=== PATIENT | male | born 1960 | race Caucasian/White ===

== ENCOUNTER 2020-01-03 08:48 | Outpatient (CLI) | payer MEDICARE, MEDICAID, SELFPAY ==
--- NOTE | ~2020-01-03 | MR_ITS ---
EXAMINATION: MR cervical spine wo [facility] EXAM DATE: 01/03/2020 10:21 INDICATION: Right-sided neck and shoulder pain for 5 weeks. TECHNIQUE: Multi-sequential, multiplanar MR images of the cervical spine were obtained without contra st. Axial T2, axial T2 MERGE sequence. Sagittal T1, T2, T2 fat saturation images also obtained. Th ere is no prior study for comparison. FINDINGS: There are some limitations from patient motion. There is anterior and interbody fusion at C6-7. The spinal cord signal intensity and intrinsic morphology is normal. Cervicomedullary junction is normal in appearance. There are no suspicious marrow signal abnormalities. Paraspinal soft tissue is unremarkable. The vertebral bodies are aligned in the AP dimension. Level by level evaluation: C2-C3: Disc does not extend beyond the endplate margin. Uncovertebral joint arthropathy: None. Facet joint arthropathy: Moderate right, mild left. Neural foraminal stenosis: No stenosis. Central canal stenosis: No stenosis. C3-C4: There is a minimal diffuse disc bulge. Uncovertebral joint arthropathy: Mild. Facet joint arthropathy: Moderate to severe right, moderate left. Neural foraminal stenosis: Moderate right, mild to moderate left. Central canal stenosis: Mild. C4-C5: There is a mild diffuse disc bulge. Uncovertebral joint arthropathy: Mild to moderate right, mild left. Facet joint arthropathy: Severe right, moderate left. Neural foraminal stenosis: Moderate to severe right, mild left. Central canal stenosis: Mild. C5-C6: There is a mild diffuse disc bulge. Uncovertebral joint arthropathy: Mild to moderate bilateral. Facet joint arthropathy: Moderate bilateral. Neural foraminal stenosis: Mild to moderate bilateral. Central canal stenosis: Mild. C6-C7: This level is fused. Uncovertebral joint arthropathy: Fused. Facet joint arthropathy: Partially fused. Neural foraminal stenosis: No stenosis. Central canal stenosis: No stenosis. C7-T1: Disc does not extend beyond the endplate margin. Uncovertebral joint arthropathy: Moderate left, mild right. Facet joint arthropathy: Mild to moderate bilateral. Neural foraminal stenosis: Moderate left, mild to moderate right. Central canal stenosis: No stenosis. IMPRESSION: C4-5 severe right neural foraminal stenosis, less narrowings at other levels. Reviewed, dictated and finalized at location B. IMPRESSION: C4-5 severe right neural foraminal stenosis, less narrowings at oth er levels.
--- NOTE | ~2020-01-03 | MR_ITS ---
EXAMINATION: MR lumbar spine wo [facility] EXAM DATE: 01/03/2020 10:21 INDICATION: Lower thoracic fusion, compression fractures. Lumbar radiculopathy. Right hip, leg pain f or 5 weeks. TECHNIQUE: Multi-sequential, multiplanar MR images of the lumbar spine were obtained without contrast . Sagittal T1, T2, T2 fat saturation images. Axial T2 weighted images. There is no prior study for comparison. FINDINGS: Paraspinal soft tissue is unremarkable. The vertebral bodies are aligned in the AP dimensio n. Mild to moderate chronic compression fractures of T12 and L1 with thoracolumbar posterior fusion h ardware extending off the study but at least L1, T12 and T11. Mild diffuse lumbar disc disease. There is 3 mm retrolisthesis L5 on S1. Lumbar spine vertebral bodies otherwise aligned. Some metallic alfonso fact on the conus medullaris, but no evidence of signal abnormality. Level by level evaluation: T11-12: Disc does not extend beyond the endplate margin. Facet arthropathy: Poorly visualized from posterior fusion. Neural foraminal stenosis: No stenosis. Central canal stenosis: No stenosis. T12-L1: Disc does not extend beyond the endplate margin. Facet arthropathy: Poorly visualized, posterior fusion. Neural foraminal stenosis: No stenosis. Central canal stenosis: No stenosis. L1-L2: Disc does not extend beyond the endplate margin. Facet arthropathy: Mild. Neural foraminal stenosis: No stenosis. Central canal stenosis: No stenosis. L2-L3: There is a mild diffuse disc bulge. Facet arthropathy: Mild to moderate. Neural foraminal stenosis: Minimal left. Central canal stenosis: Mild. L3-L4: There is a mild diffuse disc bulge. Facet arthropathy: Mild to moderate. Neural foraminal stenosis: Mild left, minimal right. Central canal stenosis: Mild. L4-L5: There is a mild to moderate diffuse disc bulge. Facet arthropathy: Mild to moderate. Neural foraminal stenosis: Mild to moderate right, mild left. Central canal stenosis: Mild to moderate. L5-S1: There is a mild to moderate diffuse disc bulge. Facet arthropathy: Mild to moderate. Neural foraminal stenosis: Mild bilateral. Central canal stenosis: Mild. IMPRESSION: 1. Mild to moderate lumbar spondylosis. Reviewed, dictated and finalized at location A.
== END 2020-01-03 08:49 | disposition home or self-care (01) ==
PROVIDERS: PCP Emergency Medicine; Visit Provider Anesthesiology
DX: M54.16 Radiculopathy, lumbar region (principal); M54.12 Radiculopathy, cervical region
CPT/HCPCS: 72141; 72148

== ENCOUNTER 2020-01-19 12:27 | Emergency (ER) | payer MEDICARE, MEDICAID, SELFPAY ==
--- NOTE | ~2020-01-19 | XR_ITS ---
XR chest 2V 01/19/2020 13:43 Indication: Chest discomfort. Dyspnea. Procedure: 2 view chest Comparison: No prior studies for comparison. Findings: Heart size normal. There is spinal fusion of the lower thoracic spine. No focal air space d isease, pulmonary edema, pleural effusion or suspected pneumothorax. No acute osseous abnormality. Impression: 1: No acute cardiopulmonary disease. Reviewed, dictated and finalized at location B. Impression: 1: No acute cardiopulmonary disease.
--- NOTE | 2020-01-19 12:37 | ED.SOB ---
HPI - SOB/Dyspnea General Chief Complaint: Shortness of Breath/Dyspnea Stated Complaint: trouble breathing Time Seen by Provider: 01/19/20 12:37 Source: patient Mode of arrival: ambulatory Limitations: no limitations History of Present Illness HPI Narrative: Patient has been ill for approximately 2 weeks. Says he just seems to be getting worse. He was concerned about pneumonia. He was also tested for ann virus at a walk-in clinic 5 days ago. He was not seen by anyone only had the test done. Also states he has been out of his albuterol inhaler. He is not using his CPAP machine at night. He denies any history of congestive heart failure. Is not having any chest pain. He has been coughing up some yellow-green phlegm. MD elicited complaint: shortness of breath Pertinent past history: COPD Onset (ago): week(s) (2) Timing: intermittent Severity: moderate Exacerbating factors: lying flat and exertion Relieving factors: nothing Known history of: COPD Associated symptoms: cough, wheezing and sputum production Treatment prior to arrival: none Related Data Home oxygen amount: none Home Medications Medication Instructions Recorded Confirmed amlodipine 5 mg PO DAILY 01/19/20 01/19/20 aspirin 81 mg PO DAILY 01/19/20 01/19/20 atorvastatin 40 mg PO DAILY 01/19/20 01/19/20 baclofen 20 mg PO TID 01/19/20 01/19/20 cetirizine 10 mg PO DAILY 01/19/20 01/19/20 clonidine HCl 0.1 mg PO BID 01/19/20 01/19/20 fluoxetine 20 mg PO DAILY 01/19/20 01/19/20 gabapentin 300 mg PO TID 01/19/20 01/19/20 glipizide 5 mg PO DAILY 01/19/20 01/19/20 metoprolol tartrate 25 mg PO DAILY 01/19/20 01/19/20 omeprazole 10 mg PO DAILY 01/19/20 01/19/20 tamsulosin 0.8 mg PO DAILY 01/19/20 01/19/20 Allergies Allergy/AdvReac Type Severity Reaction Status Date / Time lisinopril Allergy Unknown Verified 01/19/20 12:58 Sulfa (Sulfonamide Allergy Unknown Verified 01/19/20 12:58 Antibiotics) Review of Systems Constitutional: Constitutional: Denies chills and Denies fever(s) Cardiovascular: Cardiovascular: Reports no additional cardiovascular complaints, Denies chest pain and Denies rapid heart rate Respiratory: Respiratory: Reports as per HPI and Reports change in phlegm color Gastrointestinal: Gastrointestinal: Reports no additional gastrointestinal complaints Musculoskeletal: Musculoskeletal: Reports arthralgias ( right shoulder) Integumentary/Breasts: Skin/Breast: Reports system reviewed and no additional complaints, except as docu Neurologic: Reports system reviewed and no additional complaints, except as documented Psychiatric: Psychiatric: Reports no additional psychiatric complaints Endocrine: Endocrine: Reports no additional endocrine complaints Hematologic/Lymphatic: Hematologic/Lymphatic: Reports no additional hematologic/lymphatic complaints [facility] Past Medical History Medical History (Updated 01/19/20 @ 14:14 by Rylan Lacy MD) COPD (chronic obstructive pulmonary disease) Coronary artery disease Type 2 diabetes mellitus Surgical History Surgical History (Updated 01/19/20 @ 12:51 by Rylan Lacy MD) Fusion of lumbar spine H/O cervical spine surgery Social History Social History (Updated 01/19/20 @ 12:51 by Rylan Lacy MD) Smoking packs per day: 1 Smoking cigarettes per day: 20.0 Smoking status: Current every day smoker Tobacco type: cigarettes Alcohol intake: current Alcohol use details: occasional Substance use: never Exam Const: General: healthy appearing and no acute distress Nutritional Appearance: well nourished and obese centrally obese Orientation/consciousness: patient oriented x3 HENMT: Head: normal to inspection Ears: external ears normal Face and sinus: normal facial exam Mouth: Yes lip normal and Yes moist mucous membranes Eyes: Conjunctivae: conjunctivae normal Pupils: Equal, round and reactive pupils present EOM: EOMs intact bilaterally Neck: Neck: normal visua
[2020-01-19 12:51] VITALS: BP 176/90; PULSE 66; RESP 20; TEMP 36.6; O2SAT 95
[2020-01-19 13:10] VITALS: PULSE 70; RESP 24
[2020-01-19] MEDS: IPRATROPIUM 0.5 MG/ALBUTEROL SULFATE 2.5 MG AMPUL.NEB 3 ML INHALATION (13:15)
[2020-01-19 13:21] LABS: Basophils Absolute Auto 0.03 K/mm3 (0.00-0.10); Basophils Percent Auto 0.4 % (0.0-1.0); Eosinophils Absolute Auto 0.25 K/mm3 (0.02-0.50); Eosinophils Percent Auto 3.1 % (1.0-6.0); Hematocrit 43.8 % (40.0-54.0); Hemoglobin 15.1 g/dL (14.0-18.0); Immature Granulocyte Absolute 0.03 K/mm3 (0.00-0.00); Immature Granulocyte Percent A 0.4 % (0.0-0.0); Lymphocytes Absolute Auto 3.02 K/mm3 (1.10-4.50); Lymphocytes Percent Auto 37.2 % (18.0-42.0); Mean Corpuscular HGB Conc 34.5 g/dL (32.0-36.0); Mean Corpuscular Volume 87.1 fL (78.0-102.0); Mean Platelet Volume 8.7 fl (8.7-11.0); Monocytes Absolute Auto 0.55 K/mm3 (0.10-0.90); Monocytes Percent Auto 6.8 % (2.0-11.0); Neutrophils Absolute Auto 4.2 K/mm3 (1.7-7.2); Neutrophils Percent Auto 52.1 % (50.0-70.0); Platelet Count Result 253 K/mm3 (150-420); Red Blood Count 5.03 M/mm3 (4.70-6.10); Red Cell Distribution Width 13.9 % (11.6-14.4); White Blood Count 8.1 K/mm3 (4.8-10.8)
[2020-01-19 13:24] VITALS: PULSE 64; RESP 24
[2020-01-19 13:38] LABS: Lactic Acid 1.5 mmol/L (0.4-2.0)
[2020-01-19 13:39] LABS: BNP 17.5 pg/mL (0-100)
[2020-01-19 13:41] LABS: Alanine Aminotransferase 34 U/L (16-63); Albumin Level 3.4 g/dL (3.4-5.0); Alkaline Phosphatase 99 U/L (46-116); Anion Gap 10.6 mmol/L (7-16); Aspartate Amino Transferase 17 U/L (15-37); Bilirubin,Total 0.4 mg/dL (0.00-1.00); Blood Urea Nitrogen 13 mg/dL (7-18); Calcium 8.5 mg/dL (8.5-10.1); Carbon Dioxide 27 mmol/L (21-32); Chloride 98 mmol/L (98-108); Estimated CRCL calculation 125 ml/min; Estimated Glomerular Filt Rate > 60; Glucose 204 mg/dL (70-99); Magnesium 1.6 mg/dL (1.8-2.4); Osmolality Calculated 280 mOsm/kg (285-295); Potassium 3.6 mmol/L (3.5-5.1); Sodium 132 mmol/L (136-145); Total Protein 7.1 g/dL (6.4-8.2)
[2020-01-19 13:43] LABS: CRP < 0.2 mg/dL (0.0-0.9)
[2020-01-19 14:05] VITALS: BP 156/92; PULSE 64; RESP 18; O2SAT 96
[2020-01-19] MEDS: methylPREDNISolone SOD SUCC 125 MG VIAL IM (14:06)
== END 2020-01-19 14:14 | disposition home or self-care (01) ==
PROVIDERS: Emergency Provider Emergency Medicine
DX: E83.42 Hypomagnesemia (principal); J44.1 Chronic obstructive pulmonary disease with (acute) exacerbation; I25.10 Atherosclerotic heart disease of native coronary artery without angina pectoris; E11.9 Type 2 diabetes mellitus without complications; F17.200 Nicotine dependence, unspecified, uncomplicated
CPT/HCPCS: 36415; 71046; 80053; 83605; 83735; 83880; 85025; 86140; 87040; 94640; 96372; 99283; 99284; J2930

== ENCOUNTER 2020-04-01 17:08 | Emergency (ER) | payer MEDICARE, MEDICAID, SELFPAY ==
--- NOTE | ~2020-04-01 | XR_ITS ---
EXAMINATION: XR chest 2V DATE: 04/01/2020 18:09 INDICATION: Shortness of breath TECHNIQUE: PA and lateral views of the chest are obtained. COMPARISON: 01/19/2020 FINDINGS: The lungs are free of acute opacities. There is no pleural effusion or pneumothorax. The ca rdiomediastinal silhouette is normal. There are changes of anterior fusion procedure in the lower cer vical spine and posterior lower thoracic fusion. IMPRESSION: 1. No acute cardiopulmonary abnormality. Reviewed, dictated and finalized at location A.
[2020-04-01 17:10] VITALS: BP 192/110; PULSE 92; RESP 24; TEMP 36.8; O2SAT 95
--- NOTE | 2020-04-01 17:23 | ECG_ITS ---
Measurements Intervals [place] Rate: 86 P: 68 MT: 177 QRS: 99 QRSD: 160 T: 46 QT: 423 QTc: 508 Interpretive Statements SINUS RHYTHM RIGHT BUNDLE BRANCH BLOCK BASELINE ARTIFACT- II, III, AVF, V3-V6 ABNORMAL ECG Electronically Signed On 04-01-2020 18:48:57 CDT by Dg Seay D.O.
[2020-04-01] MEDS: IPRATROPIUM 0.5 MG/ALBUTEROL SULFATE 2.5 MG AMPUL.NEB 3 ML INHALATION (17:25)
[2020-04-01 17:27] VITALS: PULSE 88; RESP 22
[2020-04-01] MEDS: methylPREDNISolone SOD SUCC 125 MG VIAL IV PUSH (17:30)
[2020-04-01 17:33] VITALS: PULSE 87; RESP 22
--- NOTE | 2020-04-01 17:39 | ED.SOB ---
HPI - SOB/Dyspnea General Chief Complaint: Shortness of Breath/Dyspnea Stated Complaint: SOB Source: patient Mode of arrival: ambulatory Limitations: no limitations History of Present Illness HPI Narrative: this is a 59-year-old gentleman that presents with history of COPD history of diabetes, has been out of his inhaler and has become increasingly short of breath over last 3 days and worsening over the last few hours. Has a nonproductive cough with no fever chills does have audible wheezing with no chest pain or pressure no nausea vomiting or abdominal pain. Patient is a smoker, and has been out of his inhalers which may have contributed to his increasing shortness of breath. MD elicited complaint: shortness of breath Pertinent past history: COPD Onset (ago): day(s) Context: medication noncompliance Timing: intermittent Severity: moderate Exacerbating factors: coughing, inspiration and allergies Relieving factors: bronchodilators Known history of: COPD Associated symptoms: wheezing Treatment prior to arrival: none Related Data Home Medications Medication Instructions Recorded Confirmed amlodipine 5 mg PO DAILY 01/19/20 04/01/20 aspirin 81 mg PO DAILY 01/19/20 04/01/20 atorvastatin 40 mg PO DAILY 01/19/20 04/01/20 baclofen 20 mg PO TID 01/19/20 04/01/20 cetirizine 10 mg PO DAILY 01/19/20 04/01/20 clonidine HCl 0.1 mg PO BID 01/19/20 04/01/20 fluoxetine 20 mg PO DAILY 01/19/20 04/01/20 gabapentin 300 mg PO TID 01/19/20 04/01/20 glipizide 5 mg PO DAILY 01/19/20 04/01/20 metoprolol tartrate 25 mg PO DAILY 01/19/20 04/01/20 omeprazole 10 mg PO DAILY 01/19/20 04/01/20 tamsulosin 0.8 mg PO DAILY 01/19/20 04/01/20 Allergies Allergy/AdvReac Type Severity Reaction Status Date / Time lisinopril Allergy Unknown Verified 01/19/20 12:58 Sulfa (Sulfonamide Allergy Unknown Verified 01/19/20 12:58 Antibiotics) Review of Systems Review of Systems: All systems reviewed & are unremarkable except as noted in HPI and below PMFSH Past Medical History Medical History COPD (chronic obstructive pulmonary disease) Coronary artery disease Type 2 diabetes mellitus Surgical History Surgical History Fusion of lumbar spine H/O cervical spine surgery Social History Social History Smoking packs per day: 1 Smoking cigarettes per day: 20.0 Smoking status: Current every day smoker Tobacco type: cigarettes Alcohol intake: current Substance use: never Exam Const: General: no acute distress Orientation/consciousness: patient oriented x3 HENMT: Head: normal to inspection Eyes: Conjunctivae: conjunctivae normal Pupils: Equal, round and reactive pupils present Direct Ophthalmoscopy: no photophobia Neck: Neck: normal visual inspection, no lymphadenopathy and no meningeal signs Chest: Chest palpation & inspection: normal inspection of the chest Resp: Auscultation: wheezes and diminished lung sounds Cardio: Rate: regular rate Rhythm: regular rhythm GI: GI Palp: Yes Soft to palpation Percussion: Yes normal to percussion Auscultation: normal bowel sounds Skin: General skin exam: normal color Rashes: no rashes Neuro: General: patient oriented x3, moves all extremities, no meningeal signs and no focal motor deficits Extrem: General: normal to inspection Psych: Mental Status: mental status grossly normal Affect: normal affect Thought content: Yes Normal thought content present Course Course Emergency Course: Patient have significant improvement with DuoNebs and with IV Solu-Medrol. Vital Signs Vital signs: Vital Signs Temperature 36.8 C 04/01/20 17:10 Pulse Rate 92 04/01/20 17:10 Respiratory Rate 24 H 04/01/20 17:10 Blood Pressure 192/110 H 04/01/20 17:10 Pulse Oximetry 95 04/01/20 17:10 Temperature 36.8 C 04/01
[2020-04-01 17:54] LABS: Hematocrit 40.4 % (40.0-54.0); Hemoglobin 13.9 g/dL (14.0-18.0); Mean Corpuscular HGB Conc 34.4 g/dL (32.0-36.0); Mean Corpuscular Volume 93.1 fL (78.0-102.0); Mean Platelet Volume 8.4 fl (8.7-11.0); Platelet Count Result 238 K/mm3 (150-420); Red Blood Count 4.34 M/mm3 (4.70-6.10); Red Cell Distribution Width 16.8 % (11.6-14.4); White Blood Count 6.8 K/mm3 (4.8-10.8)
[2020-04-01 18:12] LABS: Alanine Aminotransferase 25 U/L (16-63); Albumin Level 3.5 g/dL (3.4-5.0); Alkaline Phosphatase 93 U/L (46-116); Anion Gap 10 mmol/L (8-16); Aspartate Amino Transferase 23 U/L (15-37); Bilirubin,Total 0.3 mg/dL (0.00-1.00); Blood Urea Nitrogen 7 mg/dL (7-18); Calcium 8.3 mg/dL (8.5-10.1); Carbon Dioxide 24 mmol/L (21-32); Chloride 104 mmol/L (98-108); Estimated Glomerular Filt Rate > 60; Glucose 304 mg/dL (70-99); Osmolality Calculated 295 mOsm/kg (285-295); Potassium 3.4 mmol/L (3.5-5.1); Sodium 138 mmol/L (136-145); Total Protein 6.8 g/dL (6.4-8.2)
[2020-04-01 18:14] LABS: Magnesium 1.6 mg/dL (1.8-2.4)
[2020-04-01 18:15] LABS: Troponin I < 0.02 ng/mL (0.00-0.056)
[2020-04-01 18:21] LABS: BNP 56.1 pg/mL (0-100)
[2020-04-01 18:36] VITALS: BP 171/99; O2SAT 95
== END 2020-04-01 18:45 | disposition home or self-care (01) ==
PROVIDERS: Emergency Provider Emergency Medicine
DX: J06.9 Acute upper respiratory infection, unspecified (principal); J44.9 Chronic obstructive pulmonary disease, unspecified; I25.10 Atherosclerotic heart disease of native coronary artery without angina pectoris; E11.9 Type 2 diabetes mellitus without complications; F17.200 Nicotine dependence, unspecified, uncomplicated
CPT/HCPCS: 36415; 71046; 80053; 83735; 83880; 84484; 85027; 93005; 94640; 96374; 99284; J2930

== ENCOUNTER 2020-04-04 12:50 | Inpatient (IN) | payer MEDICARE, MEDICAID, SELFPAY ==
[2020-04-04] VITALS (10 sets, daily range): BP systolic 123–176; BP diastolic 86–102; PULSE 76–92; RESP 20–24; TEMP 36.3–36.4; O2SAT 93–98; BMI 34.0
--- NOTE | ~2020-04-04 | CT_ITS ---
EXAMINATION: CTA chest PE protocol DATE: 04/04/2020 14:33 INDICATION: Shortness of breath TECHNIQUE: Computed tomography angiography (CTA) of the chest was performed with 100 mL Omnipaque-350 intravenous contrast timed to evaluate the pulmonary arteries. Coronal maximum intensity projection 3D-reconstructions were created by the technologist. The dose-length product (DLP) was 998.66 mGy-cm. Automated exposure control and iterative reconstruction technique were employed. COMPARISON: None. FINDINGS: The pulmonary arteries are moderately well-opacified. No pulmonary embolism is identified. Respiratory motion artifact limits evaluation of subsegmental arterial branches in the lower lobes. T here is no pleural effusion or pneumothorax. No pathologically enlarged thoracic lymph nodes are iden tified. The heart size is normal. Mild dependent atelectasis is noted. There is calcified coronary ar meg atherosclerosis. There are bridging osteophytes at multiple levels in the spine, consistent with diffuse idiopathic skeletal hyperostosis (DISH). There are partially imaged changes of posterior tho racolumbar fusion. IMPRESSION: 1. No pulmonary embolism identified, sensitivity in subsegmental arterial branches in the lower lobes is limited by respiratory motion. 2. Mild atelectasis. Reviewed, dictated and finalized at location A. IMPRESSION: 1. No pulmonary embolism identified, sensitivity in subsegmental arterial branc hes in the lower lobes is limited by respiratory motion. 2. Mild atelectasis.
--- NOTE | ~2020-04-04 | XR_ITS ---
EXAMINATION: XR chest 2V 04/04/2020 13:22 INDICATION: Shortness of breath. CHF. PROCEDURE: PA and lateral views of the chest COMPARISON: 04/01/2020 FINDINGS: The lungs are clear. The cardiomediastinal silhouette is within normal limits. There are no pleural effusions. There is no pneumothorax suspected. There are pedicle screws overlying the lo wer thoracic spine consistent with fusion. IMPRESSION: 1: NO ACUTE CARDIOPULMONARY DISEASE. Reviewed, dictated and finalized at location A.
--- NOTE | 2020-04-04 12:56 | ECG_ITS ---
Measurements Intervals [place] Rate: 81 P: 95 FL: 159 QRS: 98 QRSD: 164 T: 11 QT: 400 QTc: 464 Interpretive Statements SINUS RHYTHM WITH SINUS ARRHYTHMIA RIGHT BUNDLE BRANCH BLOCK BORDERLINE ST-T WAVE ABNORMALITY- INFERIOR LEADS BASELINE ARTIFACT- I, II, III, AVR, AVL, AVF, V1-V6 ABNORMAL ECG Electronically Signed On 04-04-2020 20:16:23 CDT by Dg Seay D.O.
[2020-04-04] MEDS: IPRATROPIUM 0.5 MG/ALBUTEROL SULFATE 2.5 MG AMPUL.NEB 3 ML INHALATION ×2 (13:19→18:21)
[2020-04-04] MEDS: methylPREDNISolone SOD SUCC 125 MG VIAL IV PUSH (13:19)
[2020-04-04 13:29] LABS: PCO2 ABG 38.2 mmHg (35-45); pH ABG 7.45 (7.35-7.45)
[2020-04-04 13:30] LABS: Base Excess ABG 1.8 mmol/L (0-2); HCO3 ABG 25.7 mmol/L (23-29); Oxygen Content ABG 21.2 %vol (16.0-22.0); Oxygen Saturation ABG 96.7 % (95-97); Oxyhemoglobin 93.6 % (94-100); Total Hemoglobin 16.1 g/dL
[2020-04-04 13:31] LABS: Device NASAL CANNULA; Modified Allen's Test Pass; Site Drawn LEFT RADIAL
[2020-04-04 13:32] LABS: Basophils Absolute Auto 0.01 K/mm3 (0.00-0.10); Basophils Percent Auto 0.1 % (0.0-1.0); Eosinophils Absolute Auto 0.09 K/mm3 (0.02-0.50); Eosinophils Percent Auto 0.7 % (1.0-6.0); Hematocrit 43.4 % (40.0-54.0); Hemoglobin 15.3 g/dL (14.0-18.0); Immature Granulocyte Absolute 0.07 K/mm3 (0.00-0.00); Immature Granulocyte Percent A 0.5 % (0.0-0.0); Lymphocytes Absolute Auto 1.93 K/mm3 (1.10-4.50); Lymphocytes Percent Auto 15.1 % (18.0-42.0); Mean Corpuscular HGB Conc 35.3 g/dL (32.0-36.0); Mean Corpuscular Hemoglobin 32.1 pg (27.0-31.0); Mean Corpuscular Volume 91.2 fL (78.0-102.0); Mean Platelet Volume 8.5 fl (8.7-11.0); Monocytes Absolute Auto 0.72 K/mm3 (0.10-0.90); Monocytes Percent Auto 5.6 % (2.0-11.0); Platelet Count Result 238 K/mm3 (150-420); Red Blood Count 4.76 M/mm3 (4.70-6.10); Red Cell Distribution Width 16.3 % (11.6-14.4); White Blood Count 12.8 K/mm3 (4.8-10.8)
[2020-04-04 13:51] LABS: Alanine Aminotransferase 29 U/L (16-63); Albumin Level 3.3 g/dL (3.4-5.0); Alkaline Phosphatase 84 U/L (46-116); Anion Gap 11 mmol/L (8-16); Aspartate Amino Transferase 26 U/L (15-37); Blood Urea Nitrogen 7 mg/dL (7-18); Calcium 7.7 mg/dL (8.5-10.1); Carbon Dioxide 27 mmol/L (21-32); Chloride 99 mmol/L (98-108); Estimated CRCL calculation 159 ml/min; Estimated Glomerular Filt Rate > 60; Glucose 197 mg/dL (70-99); Magnesium 1.5 mg/dL (1.8-2.4); Osmolality Calculated 287 mOsm/kg (285-295); Potassium 2.8 mmol/L (3.5-5.1); Sodium 137 mmol/L (136-145); Total Protein 7.2 g/dL (6.4-8.2); Troponin I < 0.02 ng/mL (0.00-0.056)
[2020-04-04 13:57] LABS: BNP 28.4 pg/mL (0-100); D Dimer 1.04 mg/L (0.19-0.50)
[2020-04-04 14:14] LABS: Influenza Control Valid (Valid)
--- NOTE | 2020-04-04 14:20 | ED.SOB ---
HPI - SOB/Dyspnea General Chief Complaint: Shortness of Breath/Dyspnea Stated Complaint: Ambulance Source: patient History of Present Illness HPI Narrative: This is a 59-year-old male presents with some increased shortness of breath with some mild cough with describes is brown sputum expectorant, patient was seen in our emergency department approximately 2 to 3 days ago and was treated for an upper respiratory infection with azithromycin and prednisone. The patient apparently lives in a home that has cat dander and possibly mold which exacerbates his asthma/ COPD. Currently he has some audible wheezing was brought in by EMS and was given a treatment of albuterol prior to his arrival. O2 sats are stable at around 98%. Patient denies fever or chills, there is no chest pain or tightness no abdominal pain no nausea vomiting no abdominal pain no diarrhea constipation. MD elicited complaint: shortness of breath Pertinent past history: diabetes Onset (ago): day(s) Context: recent illness Timing: constant Severity: moderate Exacerbating factors: inspiration, allergies and strong odors Relieving factors: rest Known history of: diabetes Related Data Home Medications Medication Instructions Recorded Confirmed amlodipine 5 mg PO DAILY 01/19/20 04/04/20 aspirin 81 mg PO DAILY 01/19/20 04/04/20 atorvastatin 40 mg PO DAILY 01/19/20 04/04/20 baclofen 20 mg PO TID 01/19/20 04/04/20 cetirizine 10 mg PO DAILY 01/19/20 04/04/20 clonidine HCl 0.1 mg PO BID 01/19/20 04/04/20 fluoxetine 20 mg PO DAILY 01/19/20 04/04/20 gabapentin 300 mg PO TID 01/19/20 04/04/20 glipizide 5 mg PO DAILY 01/19/20 04/04/20 metoprolol tartrate 25 mg PO DAILY 01/19/20 04/04/20 omeprazole 10 mg PO DAILY 01/19/20 04/04/20 tamsulosin 0.8 mg PO DAILY 01/19/20 04/04/20 Allergies Allergy/AdvReac Type Severity Reaction Status Date / Time lisinopril Allergy Unknown Verified 04/04/20 13:48 metformin Allergy Unknown Verified 04/04/20 13:48 Sulfa (Sulfonamide Allergy Unknown Verified 04/04/20 13:48 Antibiotics) Review of Systems Review of Systems: All systems reviewed & are unremarkable except as noted in HPI and below [facility] Social History Social History Smoking packs per day: 1 Smoking cigarettes per day: 20.0 Smoking status: Current every day smoker Tobacco type: cigarettes Alcohol intake: current Substance use: never Gender identity (if verbalized by the patient): Male Exam Const: General: no acute distress Orientation/consciousness: patient oriented x3 HENMT: Head: normal to inspection Eyes: Conjunctivae: conjunctivae normal Pupils: Equal, round and reactive pupils present EOM: EOMs intact bilaterally Neck: Neck: normal visual inspection and no lymphadenopathy Chest: Chest palpation & inspection: normal inspection of the chest Resp: Auscultation: wheezes and diminished lung sounds Cardio: Rate: regular rate Rhythm: regular rhythm GI: GI Palp: Yes Soft to palpation Auscultation: normal bowel sounds : Testes: Testes normal Urinary Catheter: Urinary Catheter: patent and draining Back/Spine/Pelvis: Back: no CVA tenderness Neuro: General: patient oriented x3, moves all extremities, no meningeal signs and no focal motor deficits Extrem: General: normal to inspection and no pedal edema Psych: Mental Status: mental status grossly normal Course Course Emergency Course: Reassessment of patient continues to be comfortable after receiving at another DuoNeb while here in the emergency department along with IV 125 of Solu-Medrol. Was some explained that his D-dimer was elevated and that needed further testing with a CTA to rule out for pulmonary embolism. Vital Signs Vital signs: Vital Signs Pulse Rate 84 04/04/20 13:28 Respiratory Rate 20 04/04/20 13:28 Temperature 36.4 C L 04/04/20 13:31 Pulse Rate 82 04/04/20 13:47 Respiratory Rate 20
[2020-04-04] MEDS: KCL 20 MEQ/SW 100 ML 100 ML 50 MEQ IVPB (14:45)
[2020-04-04 15:42] LABS: Appearance Urine Clear (Clear); Bilirubin Urine Negative (Negative); Color Urine Yellow (Yellow); Glucose Urine UA Negative (Negative); Ketones Urine Negative (Negative); Leukocyte Esterase Ur Negative LEU/UL (Negative); Nitrate Urine Negative (Negative); Protein Urine 1+ (Negative); Specific Grav Ur <= 1.005 (1.010-1.020); Urobilinogen Urine 0.2 mg/dL (0.2-1.0)
[2020-04-04 15:56] LABS: Add Urine Microscopic? YES; Bacteria Urine Trace /hpf; Blood Urine Trace-Intact (Negative); RBC Urine 0-2 /hpf (0-2); Squamous Epithelial Cell Urine Rare /hpf (Few); WBC Urine 0-3 /hpf (0-3)
[2020-04-04 17:12] LABS: Glucose Point of Care 216 (65-105)
[2020-04-04] MEDS: methylPREDNISolone SOD SUCC 40 MG VIAL IV PUSH ×2 (17:30→21:35)
[2020-04-04] MEDS: SODIUM CHLORIDE 0.9% IV 1,000 ML 100 ML IV CONT (17:30)
[2020-04-04] MEDS: cloNIDine HCL 0.1 MG TABLET PO (17:31)
[2020-04-04] MEDS: BACLOFEN 10 MG TABLET 20 MG PO (17:31)
[2020-04-04] MEDS: GABAPENTIN 300 MG CAPSULE PO (17:31)
[2020-04-04] MEDS: AZITHROMYCIN 250 MG TABLET PO (19:15)
[2020-04-04 21:14] LABS: Potassium 3.6 mmol/L (3.5-5.1)
--- NOTE | 2020-04-04 21:35 | PC.NURSE ---
Nurse assisted patient transfer from bed to chair. IV fluids infusing per order. Call light and belongings in reach. 02@2l per nc on. Patient reminded to call for assist before transferring. Clean bed linens applied to bed, clean gown applied to pt. Patient pulled out IV to right hand and forearm on accident. IV restarted to left forearm, pt. tolerated well.
[2020-04-04 21:57] LABS: Glucose Point of Care 263 (65-105)
--- NOTE | 2020-04-04 22:24 | PC.NURSE ---
Nurse assisted patient transfer from chair to bed. HOB elevated. Patient resting at side of bed. 02@2l per nc on. Patient alert x 3. Continues to be anxious at times. Breathing unlabored at rest. Patient becomes SOB with very little exertion. Pt. reminded to call for assist before transferring, call light and belongings provided.
[2020-04-05] VITALS (12 sets, daily range): BP systolic 139–181; BP diastolic 78–114; PULSE 85–112; RESP 16–22; TEMP 36.3–36.8; O2SAT 93–97
[2020-04-05] MEDS: IPRATROPIUM 0.5 MG/ALBUTEROL SULFATE 2.5 MG AMPUL.NEB 3 ML INHALATION ×2 (01:00→06:36)
[2020-04-05] MEDS: methylPREDNISolone SOD SUCC 40 MG VIAL IV PUSH ×4 (04:20→21:19)
[2020-04-05] MEDS: SODIUM CHLORIDE 0.9% IV 1,000 ML 100 ML IV CONT ×2 (04:21→16:48)
--- NOTE | 2020-04-05 04:47 | PC.NURSE ---
Pt given methylprednisolone 40 mg IVP as ordered. New bag of IV fluid infusing as ordered.
[2020-04-05 07:34] LABS: Basophils Absolute Auto 0.01 K/mm3 (0.00-0.10); Basophils Percent Auto 0.1 % (0.0-1.0); Hematocrit 45.6 % (40.0-54.0); Hemoglobin 15.2 g/dL (14.0-18.0); Immature Granulocyte Absolute 0.07 K/mm3 (0.00-0.00); Immature Granulocyte Percent A 0.6 % (0.0-0.0); Lymphocytes Absolute Auto 0.94 K/mm3 (1.10-4.50); Lymphocytes Percent Auto 8.6 % (18.0-42.0); Mean Corpuscular HGB Conc 33.3 g/dL (32.0-36.0); Mean Corpuscular Hemoglobin 31.5 pg (27.0-31.0); Mean Corpuscular Volume 94.4 fL (78.0-102.0); Mean Platelet Volume 8.6 fl (8.7-11.0); Monocytes Absolute Auto 0.19 K/mm3 (0.10-0.90); Monocytes Percent Auto 1.7 % (2.0-11.0); Neutrophils Absolute Auto 9.7 K/mm3 (1.7-7.2); Platelet Count Result 213 K/mm3 (150-420); Red Blood Count 4.83 M/mm3 (4.70-6.10); Red Cell Distribution Width 16.5 % (11.6-14.4)
[2020-04-05 07:58] LABS: Glucose Point of Care 257 (65-105)
--- NOTE | 2020-04-05 08:06 | PM.IMHP ---
H&P: HPI History of Present Illness Date/Time: 04/05/20 08:06 Chief complaint: copd exacerbation Narrative: Gonzalez Jefferson is a 59 year old male who presented to the ER with increased shortness of breath after having been treated a couple days ago for upper respiratory infection. patient lives in a home with pets which may have contributed to his increased shortness of breath, his eosinophil count is low. upon evaluation in the ER he was suspected of having COVID test was performed and that result is negative as of today. patient states he is able to breathe better today. Review of Systems Constitutional: Constitutional: Denies body ache(s) and Denies chills Cardiovascular: Cardiovascular: Denies chest pain, Denies chest pain at rest and Denies chest pain with activity Respiratory: Respiratory: Reports dyspnea ( patient says this is better today) Gastrointestinal: Gastrointestinal: Reports no additional gastrointestinal complaints Musculoskeletal: Musculoskeletal: Denies myalgias and Denies arthralgias Neurologic: Denies confusion, Denies dizziness, Denies headache(s) and Denies lack of coordination Allergic/Immunologic: Comments: patient says possibility of having respiratory issues related to living with pets and having COPD. [facility] Surgical History Surgical History Fusion of lumbar spine H/O cervical spine surgery Social History Social History Smoking packs per day: 1.5 Smoking cigarettes per day: 30.0 Years smoked: 46 Smoking pack-years: 69.00 Smoking status: Current every day smoker Tobacco type: cigarettes Alcohol intake: never Substance use: never Gender identity (if verbalized by the patient): Male Spiritual care concerns: No Meds Home Medications and Allergies Home Medications Medication Instructions Recorded Confirmed Type albuterol sulfate 2 puff INHALATION QID PRN #8.5 gm 01/19/20 04/04/20 Rx amlodipine 5 mg PO DAILY 01/19/20 04/04/20 History aspirin 81 mg PO DAILY 01/19/20 04/04/20 History atorvastatin 40 mg PO DAILY 01/19/20 04/04/20 History baclofen 20 mg PO TID 01/19/20 04/04/20 History cetirizine 10 mg PO DAILY 01/19/20 04/04/20 History clonidine HCl 0.1 mg PO BID 01/19/20 04/04/20 History fluoxetine 20 mg PO DAILY 01/19/20 04/04/20 History gabapentin 300 mg PO TID 01/19/20 04/04/20 History glipizide 5 mg PO DAILY 01/19/20 04/04/20 History metoprolol tartrate 25 mg PO DAILY 01/19/20 04/04/20 History omeprazole 10 mg PO DAILY 01/19/20 04/04/20 History tamsulosin 0.8 mg PO DAILY 01/19/20 04/04/20 History albuterol sulfate [ProAir HFA] 2 puff INHALATION QID PRN #6.7 gm 04/01/20 04/04/20 Rx azithromycin [Zithromax Z-Arik] See Rx Instructions .ROUTE 04/01/20 04/04/20 Rx .COMPLEX #6 tablet prednisone 20 mg PO DAILY 5 Days #5 tablet 04/01/20 04/04/20 Rx Allergies Allergy/AdvReac Type Severity Reaction Status Date / Time lisinopril Allergy Unknown Verified 04/04/20 13:48 metformin Allergy Unknown Verified 04/04/20 13:48 Sulfa (Sulfonamide Allergy Unknown Verified 04/04/20 13:48 Antibiotics) Vital Signs Vital Signs - 24 hr 04/04/20 13:28 04/04/20 13:31 04/04/20 13:47 Temperature 97.5 F L Pulse Rate 84 85 82 Respiratory Rate 20 20 20 Blood Pressure 156/88 H Pulse Oximetry 97 96 04/04/20 14:30 04/04/20 15:00 04/04/20 16:00 Temperature 97.6 F Pulse Rate 87 76 90 Respiratory Rate 20 20 24 H Blood Pressure 123/86 176/89 H 150/102 H Pulse Oximetry 96 96 96 04/04/20 16:20 04/04/20 18:20 04/04/20 18:27 Temperature Pulse Rate 90 86 90 Respiratory Rate 24 H 22 H 22 H Blood Pressure Pulse Oximetry 98 04/04/20 20:45 04/05/20 00:00 04/05/20 01:01 Temperature 97.3 F L 97.6 F Pulse Rate 92 100 100 Respiratory Rate 22 H 22 H Blood Pressure 154/102 H 161/90 H Pulse Oximetry 93 93 04/05/20 01:02 04/05/20 03:41 04/05/20
[2020-04-05 08:10] LABS: Alanine Aminotransferase 27 U/L (16-63); Albumin Level 3.4 g/dL (3.4-5.0); Alkaline Phosphatase 87 U/L (46-116); Anion Gap 11 mmol/L (8-16); Aspartate Amino Transferase 17 U/L (15-37); Bilirubin,Total 0.9 mg/dL (0.00-1.00); Blood Urea Nitrogen 11 mg/dL (7-18); Carbon Dioxide 25 mmol/L (21-32); Chloride 101 mmol/L (98-108); Estimated CRCL calculation 128 ml/min; Estimated Glomerular Filt Rate > 60; Glucose 275 mg/dL (70-99); Osmolality Calculated 293 mOsm/kg (285-295); Potassium 3.4 mmol/L (3.5-5.1); Sodium 137 mmol/L (136-145); Total Protein 7.1 g/dL (6.4-8.2)
[2020-04-05] MEDS: LORATADINE 10 MG TABLET PO (08:12)
[2020-04-05] MEDS: glipiZIDE 5 MG TABLET PO (08:12)
[2020-04-05] MEDS: AZITHROMYCIN 250 MG TABLET PO (08:13)
[2020-04-05] MEDS: TAMSULOSIN HCL 0.4 MG CAPSULE 0.8 MG PO (08:13)
[2020-04-05] MEDS: ATORVASTATIN 40 MG TABLET PO (08:13)
[2020-04-05] MEDS: METOPROLOL TARTRATE 25 MG TABLET PO (08:13)
[2020-04-05] MEDS: amLODIPine BESYLATE 5 MG TABLET PO (08:13)
[2020-04-05] MEDS: ASPIRIN 81 MG CHEWABLE TABLET PO (08:13)
[2020-04-05] MEDS: GABAPENTIN 300 MG CAPSULE PO ×3 (08:13→16:42)
[2020-04-05] MEDS: FLUoxetine HCL 10 MG CAPSULE 20 MG PO (08:13)
[2020-04-05] MEDS: BACLOFEN 10 MG TABLET 20 MG PO ×3 (08:13→16:42)
[2020-04-05] MEDS: cloNIDine HCL 0.1 MG TABLET PO ×2 (08:14→17:30)
[2020-04-05] MEDS: PANTOPRAZOLE 40 MG TABLET PO (08:18)
[2020-04-05] MEDS: POTASSIUM CHLORIDE 20 MEQ TABLET 40 MEQ PO (10:19)
[2020-04-05 12:00] LABS: SARS-CoV-2 RNA PCR Negative
[2020-04-05 12:08] LABS: Glucose Point of Care 311 (65-105)
[2020-04-05] MEDS: ALBUTEROL SULFATE (*SP) INHALER 8 PUFF INHALATION ×3 (14:37→21:20)
[2020-04-05 17:02] LABS: Glucose Point of Care 238 (65-105)
--- NOTE | 2020-04-05 19:57 | PC.NURSE ---
Patient fidgets and moves constantly. Knocked over his water jug. Appears to have difficulty following directions, but does try too.
[2020-04-05 20:42] LABS: Glucose Point of Care 279 (65-105)
[2020-04-06] VITALS (8 sets, daily range): BP systolic 142–170; BP diastolic 66–96; PULSE 79–96; RESP 18–20; TEMP 36.3–36.8; O2SAT 92–96
[2020-04-06] MEDS: ALBUTEROL SULFATE (*SP) INHALER 8 PUFF INHALATION ×6 (01:06→21:47)
[2020-04-06] MEDS: methylPREDNISolone SOD SUCC 40 MG VIAL IV PUSH ×4 (04:00→21:47)
[2020-04-06 05:46] LABS: Hematocrit 42.4 % (40.0-54.0); Hemoglobin 14.3 g/dL (14.0-18.0); Mean Corpuscular HGB Conc 33.7 g/dL (32.0-36.0); Mean Corpuscular Hemoglobin 31.6 pg (27.0-31.0); Mean Corpuscular Volume 93.8 fL (78.0-102.0); Mean Platelet Volume 8.8 fl (8.7-11.0); Platelet Count Result 213 K/mm3 (150-420); Red Blood Count 4.52 M/mm3 (4.70-6.10); Red Cell Distribution Width 16.6 % (11.6-14.4); White Blood Count 13.4 K/mm3 (4.8-10.8)
[2020-04-06 05:58] LABS: Anion Gap 10 mmol/L (8-16); Blood Urea Nitrogen 15 mg/dL (7-18); Calcium 7.8 mg/dL (8.5-10.1); Carbon Dioxide 26 mmol/L (21-32); Chloride 102 mmol/L (98-108); Estimated CRCL calculation 131 ml/min; Estimated Glomerular Filt Rate > 60; Glucose 308 mg/dL (70-99); Osmolality Calculated 298 mOsm/kg (285-295); Sodium 138 mmol/L (136-145)
--- NOTE | 2020-04-06 07:28 | PM.IMPN ---
Progress Note: A&P Assessment and Plan (1) COPD (chronic obstructive pulmonary disease): Qualifiers: COPD type: COPD with acute exacerbation Qualified Code(s): J44.1 - Chronic obstructive pulmonary disease with (acute) exacerbation Code(s): J44.9 - Chronic obstructive pulmonary disease, unspecified Status: Acute Assessment and Plan: 04/05/2020 Solu-Medrol, albuterol MDI, Spiriva, azithromycin, considering changing to nebulizers if COVID test is negative, monitor vital signs and respiratory status 04/06/2020 will continue with same medication and doses as noted above, on discharge will continue azithromycin for the course and taper of steroids, anticipate discharge home tomorrow, will be doing home oxygen walk test today. (2) Person under investigation for COVID-19: Code(s): Z20.828 - Contact with and (suspected) exposure to other viral communicable diseases Status: Acute Assessment and Plan: 04/05/2020 results for COVID testing is negative 04/06/2020 same as above, continue treating COPD (3) Type 2 diabetes mellitus: Code(s): E11.9 - Type 2 diabetes mellitus without complications Status: Acute Assessment and Plan: 04/05/2020 continue home medication, sliding scale insulin, monitor sugar levels AC/HS, make adjustments regimen as needed 04/06/2020 continue with as above, patient is currently on steroids elevating his glucose count, anticipate glucose returning to his baseline after steroid regimen and tapering his complete, patient will need to follow-up with his primary care provider or workforce management coordinator if he has one (4) Hypomagnesemia: Code(s): E83.42 - Hypomagnesemia Status: Inactive Assessment and Plan: 04/05/2020 magnesium levels are currently normal, will monitor periodically 04/06/2020 will obtain Mag level tomorrow along with other labs (5) Hypokalemia: Code(s): E87.6 - Hypokalemia Status: Acute Assessment and Plan: 04/05/2020 supplemented today with 40 mEq p.o. potassium, will monitor blood work 04/06/2020 potassium was within normal limits today, will recheck in a.m., blood pressure has been elevated in the morning discussed with Dr. Walsh will increase amlodipine from 5 mg to 10 mg Subjective Date/time seen: 04/06/20 07:28 Patient states that he is feeling a little bit better today and feels like he does need to have the oxygen through the nasal cannula to ensure better breathing. Patient states that he does not quite feel he is at baseline. Patient is not have any other complaints this time. He is looking forward to going home tomorrow. Review of Systems Constitutional: Constitutional: Reports no additional constitutional complaints, Denies chills, Denies fatigue and Denies lethargy Cardiovascular: Cardiovascular: Reports no additional cardiovascular complaints, Denies chest pain and Denies chest pain at rest Respiratory: Respiratory: Reports as per HPI Gastrointestinal: Gastrointestinal: Reports no additional gastrointestinal complaints Musculoskeletal: Musculoskeletal: Denies myalgias and Denies muscle weakness Psychiatric: Psychiatric: Reports no additional psychiatric complaints Exam Narrative: Exam Narrative: Lung sounds have improved today still a little diminished in all bruner. Const: General: cooperative, comfortable and no acute distress Nutritional Appearance: obese Orientation/consciousness: oriented to person, oriented to place and oriented to time Resp: Auscultation: diminished lung sounds diffuse ( But improved since yesterday) Cardio: Jugular venous distension: no JVD Rate: regular rate Rhythm: regular rhythm Heart sounds: S1 normal heart sound present and S2 normal heart sound present Neuro: Cognition (Neuro): normal cognition Extrem: Right upper extremity: full ROM Left upper extremity: full ROM Right lower extremity: no edema Left lower extremity: no edema Psych: Affect: no
[2020-04-06 07:33] LABS: Glucose Point of Care 264 (65-105)
[2020-04-06] MEDS: AZITHROMYCIN 250 MG TABLET PO (08:22)
[2020-04-06] MEDS: METOPROLOL TARTRATE 25 MG TABLET PO (08:22)
[2020-04-06] MEDS: ASPIRIN 81 MG CHEWABLE TABLET PO (08:22)
[2020-04-06] MEDS: FLUoxetine HCL 10 MG CAPSULE 20 MG PO (08:23)
[2020-04-06] MEDS: TAMSULOSIN HCL 0.4 MG CAPSULE 0.8 MG PO (08:23)
[2020-04-06] MEDS: LORATADINE 10 MG TABLET PO (08:24)
[2020-04-06] MEDS: BACLOFEN 10 MG TABLET 20 MG PO ×3 (08:24→16:28)
[2020-04-06] MEDS: PANTOPRAZOLE 40 MG TABLET PO (08:24)
[2020-04-06] MEDS: ATORVASTATIN 40 MG TABLET PO (08:24)
[2020-04-06] MEDS: amLODIPine BESYLATE 5 MG TABLET PO (08:25)
[2020-04-06] MEDS: glipiZIDE 5 MG TABLET PO (08:25)
[2020-04-06] MEDS: GABAPENTIN 300 MG CAPSULE PO ×3 (08:25→16:30)
[2020-04-06] MEDS: cloNIDine HCL 0.1 MG TABLET PO ×2 (09:03→16:28)
--- NOTE | 2020-04-06 10:26 | PC.NURSE ---
napping, no distress noted
[2020-04-06 11:31] LABS: Glucose Point of Care 340 (65-105)
--- NOTE | 2020-04-06 12:46 | PC.NURSE ---
Up performing 6 min walk
--- NOTE | 2020-04-06 12:57 | HOMEO2EVAL ---
Home Oxygen Evaluation RC: Home Oxygen (O2) Evaluation Start: 04/06/20 11:08 Freq: ONCE Status: Active Protocol: RPE Activity Type Activity Date Activity User E-Sign Co-Sign Detail Recorded Client Recorded Date Recorded By Document 04/06/20 12:44 SJB [id number] 04/06/20 12:56 SJB Document 04/06/20 12:45 SJB [id number] 04/06/20 12:56 SJB 04/06/20 04/06/20 12:44 12:45 Home O2 Evaluation Test Phase Resting Exercise Oxygen Delivery Room Air Room Air Pulse Oximetry (90-100 %) 96 93 Pulse Rate (60-100 beats/min) 84 94 Activity Tolerance Good Rating of Perceived Dyspnea (PD) +1 Mild, +2 Mild, Some Noticeable to Difficulty, the Participant Noticeable to but Not to an the Observer Observer Ambulation Distance (feet) 400 Home Oxygen Evaluation Comments PT WALKED APPROX 400 FT ON ROOM AIR. BLANKA WELL. PLB WAS TAUGHT AND ENCOURAGED ALSO TO SLOW HIS PACE. SP02 AND HEART RATES REMAINED WITHIN NORMAL LIMITS. (SP02 91-96) ( HR 74-94). Treatment Charges O2 Evaluation
--- NOTE | 2020-04-06 14:25 | PC.NURSE ---
Resting in bed, on room air at this time, denies needs
[2020-04-06 16:42] LABS: Glucose Point of Care 276 (65-105)
[2020-04-06 21:53] LABS: Glucose Point of Care 322 (65-105)
--- NOTE | 2020-04-06 21:59 | PC.NURSE ---
pt given another tika mist, cottage cheese, tesha crackers and water refill
[2020-04-07] VITALS: BP 142/92; PULSE 81; RESP 20; TEMP 36.8; O2SAT 93
[2020-04-07] MEDS: ALBUTEROL SULFATE (*SP) INHALER 8 PUFF INHALATION ×3 (01:05→08:28)
[2020-04-07] MEDS: methylPREDNISolone SOD SUCC 40 MG VIAL IV PUSH ×2 (03:45→10:47)
[2020-04-07 04:00] VITALS: BP 160/90; PULSE 88; RESP 20; TEMP 36.6; O2SAT 94
[2020-04-07 05:39] LABS: Hematocrit 42.5 % (40.0-54.0); Hemoglobin 14.6 g/dL (14.0-18.0); Mean Corpuscular HGB Conc 34.4 g/dL (32.0-36.0); Mean Corpuscular Hemoglobin 32.3 pg (27.0-31.0); Platelet Count Result 203 K/mm3 (150-420); Red Blood Count 4.52 M/mm3 (4.70-6.10); Red Cell Distribution Width 16.7 % (11.6-14.4)
[2020-04-07 05:50] LABS: Anion Gap 10 mmol/L (8-16); Blood Urea Nitrogen 14 mg/dL (7-18); Calcium 7.8 mg/dL (8.5-10.1); Carbon Dioxide 26 mmol/L (21-32); Chloride 99 mmol/L (98-108); Estimated CRCL calculation 119 ml/min; Estimated Glomerular Filt Rate > 60; Glucose 334 mg/dL (70-99); Magnesium 1.9 mg/dL (1.8-2.4); Osmolality Calculated 293 mOsm/kg (285-295); Potassium 4.5 mmol/L (3.5-5.1); Sodium 135 mmol/L (136-145)
[2020-04-07 07:20] VITALS: BP 167/82; PULSE 92; RESP 20; TEMP 36.9; O2SAT 93
--- NOTE | 2020-04-07 07:44 | PM.DS ---
DS: Admitting Diagnosis Admitting Diagnosis Admitting Diagnosis: copd exacerbation <EDE Rossi - Last Filed: 04/07/20 12:28> DS: Discharge Diagnosis Discharge Diagnosis (1) COPD (chronic obstructive pulmonary disease): Qualifiers: COPD type: COPD with acute exacerbation Qualified Code(s): J44.1 - Chronic obstructive pulmonary disease with (acute) exacerbation <EDE Rossi - Last Filed: 04/07/20 12:28> Code(s): J44.9 - Chronic obstructive pulmonary disease, unspecified <EDE Rossi - Last Filed: 04/07/20 12:28> Status: Acute <EDE Rossi - Last Filed: 04/07/20 12:28> Assessment and Plan: 04/05/2020 Solu-Medrol, albuterol MDI, Spiriva, azithromycin, considering changing to nebulizers if COVID test is negative, monitor vital signs and respiratory status 04/06/2020 will continue with same medication and doses as noted above, on discharge will continue azithromycin for the course and taper of steroids, anticipate discharge home tomorrow, will be doing home oxygen walk test today. 04/07/2020 home oxygen walk test yesterday was good patient does not need home oxygen, currently patient is on room air with good SpO2 and no complaints of shortness of breath, patient will need refills on his albuterol, patient is also requesting Wellbutrin to help with smoking cessation <EDE Rossi - Last Filed: 04/07/20 12:28> (2) Person under investigation for COVID-19: Code(s): Z20.828 - Contact with and (suspected) exposure to other viral communicable diseases <EDE Rossi - Last Filed: 04/07/20 12:28> Status: Acute <EDE Rossi - Last Filed: 04/07/20 12:28> Assessment and Plan: 04/05/2020 results for COVID testing is negative 04/06/2020 same as above, continue treating COPD 04/07/2020 as noted <EDE Rossi - Last Filed: 04/07/20 12:28> (3) Type 2 diabetes mellitus: Code(s): E11.9 - Type 2 diabetes mellitus without complications <Jose EtienneEDE horton - Last Filed: 04/07/20 12:28> Status: Acute <Jose McculloughEDE - Last Filed: 04/07/20 12:28> Assessment and Plan: 04/05/2020 continue home medication, sliding scale insulin, monitor sugar levels AC/HS, make adjustments regimen as needed 04/06/2020 continue with as above, patient is currently on steroids elevating his glucose count, anticipate glucose returning to his baseline after steroid regimen and tapering his complete, patient will need to follow-up with his primary care provider or guest experience representative if he has one 04/07/2020 will do slow taper of steroids on discharge and anticipate his glucose to reduce to his normal, patient is to have close follow-up with primary care provider or guest experience representative if he has one <Jose Medeiros EDE Mccullough - Last Filed: 04/07/20 12:28> (4) Hypomagnesemia: Code(s): E83.42 - Hypomagnesemia <Jose EtienneEDE horton - Last Filed: 04/07/20 12:28> Status: Inactive <Jose EtienneEDE horton - Last Filed: 04/07/20 12:28> Assessment and Plan: 04/05/2020 magnesium levels are currently normal, will monitor periodically 04/06/2020 will obtain Mag level tomorrow along with other labs 04/07/2020 level today was 1.9 <Jose Medeiros EDE Mccullough - Last Filed: 04/07/20 12:28> (5) Hypokalemia: Code(s): E87.6 - Hypokalemia <Jose Medeiros EDE Mccullough - Last Filed: 04/07/20 12:28> Status: Acute <Jose Medeiros EDE Mccullough - Last Filed: 04/07/20 12:28> Assessment and Plan: 04/05/2020 supplemented today with 40 mEq p.o. potassium, will monitor blood work 04/06/2020 potassium was within normal limits today, will recheck in a.m., blood pressure has been elevated in the morning discussed with Dr. Walsh will increase amlodipine from 5 mg to 10 mg 04/07/2020 within normal limits today, blood pressure was still elevated this mor
[2020-04-07 07:48] LABS: Glucose Point of Care 312 (65-105)
[2020-04-07] MEDS: cloNIDine HCL 0.1 MG TABLET PO (08:29)
[2020-04-07] MEDS: amLODIPine BESYLATE 5 MG TABLET 10 MG PO (08:29)
[2020-04-07] MEDS: BACLOFEN 10 MG TABLET 20 MG PO (08:29)
[2020-04-07 08:30] VITALS: PULSE 98
[2020-04-07] MEDS: LORATADINE 10 MG TABLET PO (08:30)
[2020-04-07] MEDS: AZITHROMYCIN 250 MG TABLET PO (08:30)
[2020-04-07] MEDS: TAMSULOSIN HCL 0.4 MG CAPSULE 0.8 MG PO (08:30)
[2020-04-07] MEDS: GABAPENTIN 300 MG CAPSULE PO (08:30)
[2020-04-07] MEDS: FLUoxetine HCL 10 MG CAPSULE 20 MG PO (08:30)
[2020-04-07] MEDS: glipiZIDE 5 MG TABLET PO (08:30)
[2020-04-07] MEDS: ASPIRIN 81 MG CHEWABLE TABLET PO (08:30)
[2020-04-07] MEDS: ATORVASTATIN 40 MG TABLET PO (08:30)
[2020-04-07] MEDS: METOPROLOL TARTRATE 25 MG TABLET PO (08:30)
[2020-04-07] MEDS: PANTOPRAZOLE 40 MG TABLET PO (08:31)
[2020-04-07 11:56] LABS: Glucose Point of Care 271 (65-105)
== END 2020-04-07 13:10 | disposition home or self-care (01) | DRG 192 ==
LOC: CHSED 15:03 → CHS2ND 04-05 07:36
PROVIDERS: Nurse Practitioner Family; Admitting Provider Emergency Medicine; Emergency Provider Emergency Medicine; Visit Provider Emergency Medicine
DX: J44.1 Chronic obstructive pulmonary disease with (acute) exacerbation (principal); F17.210 Nicotine dependence, cigarettes, uncomplicated; Z20.828 Contact with and (suspected) exposure to other viral communicable diseases; E11.9 Type 2 diabetes mellitus without complications; E87.6 Hypokalemia; E83.42 Hypomagnesemia; Z98.1 Arthrodesis status
CPT/HCPCS: 36415; 36600; 71046; 71275; 80048; 80053; 81001; 82805; 83735; 83880; 84132; 84484; 85025; 85027; 85380; 87040; 87635; 87804; 93005; 94618; 94640; 96365; 96375; 99284; 99285; A9270; C9803; J1815; J2920; J2930; J3480; J7030; Q9965; U0003